=== PATIENT | female | born 1960 | race Caucasian/White ===

== ENCOUNTER 2016-04-24 11:00 | Day surgery (SDC) | payer BC ==
[~2016-04-24 11:00] MED LIST: ACETAMINOPHEN500 MG PO; FLONASE AL50 MCG/ACT; HAIR/SKIN/NAILS PO; IRON325 MG PO; MAGNESIUM400 M1 PO; MULTIPLE VITAMIN PO; PHENTERMINE HCL15 MG PO; TAMOXIFEN CITRA20 MG PO; TOPAMAX25 MG PO; VENTOLIN HFA IN
--- NOTE | 2016-04-24 11:56 | NUR ---
PREOP INSTRUCTIONS GIVEN TO PATIENT. QUESTIONS ANSWERED. PATIENT VERBALIZES UNDERSTANDING. CONSENT CONFIRMED. PATIENT RESTING COMFORTABLY. KB
--- NOTE | 2016-04-24 14:26 | NUR ---
PATIENT ARRIVED TO PACU AT 1419. SPONT RESP. AROUSABLE. VITALS STABLE. DENIES PAIN OR DISCOMFORT AT THIS TIME. WILL CONTINUE TO MONITOR.
--- NOTE | 2016-04-24 14:31 | Provider's Discharge Care Plan ---
Problem, Goal, Plan Problem List 1. Diverticulosis
--- NOTE | 2016-04-24 14:31 | Provider's Discharge Care Plan ---
Problem, Goal, Plan Problem List 1. Diverticulosis
--- NOTE | 2016-04-24 14:57 | NUR ---
PATIENT RETURNED TO THE FLOOR AWAKE AND TALKING. VSS. PO OFFERED AND TOLERATED. UP TO BR INDEPENDENTLY. KB
--- NOTE | 2016-04-24 15:33 | NUR ---
UP TO BR INDENDENTLY WITH NO DIFFICULTY. ADVANCED DIET. DISCHARGE INSTRUCTIONS GIVEN TO PATIENT. QUESTIONS ANSWERED. PATIENT VERBALIZES UNDERSTANDING. DISCHARGED HOME WITH HER MOM. AMBULATED OUT INDEPENDENTLY. KB
--- NOTE | 2016-04-24 15:33 | OPERATIVE REPORT ---
DATE OF SURGERY: 04/24/2016 SURGEON: Tj Kruse MD PREOPERATIVE DIAGNOSIS: 1. Colon cancer risk POSTOPERATIVE DIAGNOSIS: 1. Diverticulosis coli PROCEDURE PERFORMED: Screening colonoscopy ANESTHESIA: Total IV general. INDICATIONS: The patient is a 55-year-old woman undergoing her first screening colonoscopy. She has a previous history of constipation and breast cancer. SURGICAL TECHNIQUE: The patient was taken to the endoscopy suite, where total IV general was administered and the patient was placed in the left lateral decubitus position. A well-lubricated colonoscope was advanced the length colon under direct vision. The ileocecal valve was visualized. On withdrawal, the entire colon was carefully inspected. The patient had diverticulosis of the sigmoid colon, but no other tumors or polyps. She did have some prominent hemorrhoids and skin tags at the anus which could also be seen on retroflexed view. The patient left in good condition and no intraoperative complications were encountered.
== END 2016-04-24 15:39 | disposition home or self-care (01) ==
LOC: OR SRH 11:00 → SCU SRH 11:03
PROVIDERS: Surgery
PROC: 0DJD8ZZ Inspection of Lower Intestinal Tract, Via Natural or Artificial Opening Endoscopic (ICD-10-PCS; principal; 2016-04-24 13:05)
DX: Z12.11 Encounter for screening for malignant neoplasm of colon (principal); K57.30 Diverticulosis of large intestine without perforation or abscess without bleeding; Z85.3 Personal history of malignant neoplasm of breast; Z98.84 Bariatric surgery status
CPT/HCPCS: 29229; 29240; 50004; 60001; 83526

== ENCOUNTER 2016-05-22 14:51 | Outpatient (CLI) | payer BC ==
--- NOTE | 2016-05-22 16:22 | DIAGNOSTIC IMAGING REPORT ---
PROCEDURE: MG BILATERAL SCREENING W/CAD INDICATION: Screening. Right lumpectomy and radiation for breast carcinoma (2014). Family history breast carcinoma (aunt). TECHNIQUE: Bilateral CC and MLO digital views. COMPARISON: Compared to right mammogram (11/16/2015), screening mammogram study (05/11/2015) and right mammogram (05/11/2014). FINDINGS: Computer-aided detection applied. Mildly to moderately dense parenchymal pattern. Mild improvement with slight decrease in postoperative and postradiation changes in the caudal right breast. No evidence of mass or suspicious calcification. IMPRESSION: 1. Postoperative and postradiation change of the right breast. 2. Otherwise negative mammogram. RESULT CODE: 2- Benign finding(s). A. A negative report should not delay biopsy if a dominant or clinically suspicious mass is present. 10-15% of cancers are not identified by x-ray. B. A negative report may reinforce clinical impression. C. Adenosis and dense breasts may obscure an underlying neoplasm. D. False positive reports average 6-10%. E.. A yearly screening mammogram is recommended. A reminder letter will be scheduled.
== END 2016-05-22 23:00 ==
LOC: MAM SRH 14:51
DX: Z12.31 Encounter for screening mammogram for malignant neoplasm of breast (principal); Z80.3 Family history of malignant neoplasm of breast; Z85.3 Personal history of malignant neoplasm of breast

== ENCOUNTER 2016-08-07 11:02 | Outpatient (CLI) | payer BC ==
--- NOTE | 2016-08-07 11:35 | DIAGNOSTIC IMAGING REPORT ---
PROCEDURE: DEXA BONE DENSITY STUDY CLINICAL INDICATION: BREAST CA COMPARISON: None. FINDINGS: LUMBAR SPINE: Bone mineral density 0.824, T-score -2.0, osteopenia. LEFT HIP: Bone mineral density 0.834, T-score -0.9, normal. LEFT FEMORAL NECK: Bone mineral density 0.674, T-score -1.6, osteopenia. (T score greater or equal to -1.0 to: NORMAL) (T score from -1.1 to -2.4: OSTEOPENIA) (T score ess than or equal to -2.5: OSTEOPOROSIS) IMPRESSION: 1. Lumbar spine and left hip osteopenia
== END 2016-08-07 23:00 ==
LOC: XR SRH 11:02
DX: C50.919 Malignant neoplasm of unspecified site of unspecified female breast (principal); M85.88 Other specified disorders of bone density and structure, other site